=== PATIENT | female | born 1960 | race Caucasian/White ===

== ENCOUNTER 2019-01-06 08:49 | Emergency (ER) | payer MEDICAID ==
[~2019-01-06] VITALS: Ht 170.2 cm; Wt 113.4 kg
[~2019-01-06 08:49] MED LIST: DOXE10CA; LOR2I PO; QUET25TA37 PO; ZOLP5TAB5
[2019-01-06 08:55] VITALS: BP 143/83
== END 2019-01-06 12:25 | disposition home or self-care (01) ==
LOC: ER 08:52
DX: M25.551 Pain in right hip (principal); M54.6 Pain in thoracic spine; E78.5 Hyperlipidemia, unspecified; I10 Essential (primary) hypertension; Z86.39 Personal history of other endocrine, nutritional and metabolic disease; Z90.49 Acquired absence of other specified parts of digestive tract; Z88.2 Allergy status to sulfonamides; W18.09XA Striking against other object with subsequent fall, initial encounter; Y93.01 Activity, walking, marching and hiking; Y92.89 Other specified places as the place of occurrence of the external cause; Y99.8 Other external cause status
CPT/HCPCS: 73502

== ENCOUNTER 2021-01-07 14:25 | Emergency (ER) | payer MEDICAID ==
[~2021-01-07] VITALS: Ht 170.2 cm; Wt 107.5 kg
[2021-01-07 16:56] VITALS: BP 146/86
[2021-01-07] MEDS ORDERED: ONDANSETRON ODT 4 MG TAB PO ONE (17:30)
[2021-01-07] MEDS ORDERED: ACETAMINOPHEN/CODEINE#3 (300/30mg) TAB PO ONE (17:30)
== END 2021-01-07 17:44 | disposition home or self-care (01) ==
LOC: ER 14:25
DX: S52.501A Unspecified fracture of the lower end of right radius, initial encounter for closed fracture (principal); J44.9 Chronic obstructive pulmonary disease, unspecified; I10 Essential (primary) hypertension; E78.5 Hyperlipidemia, unspecified; Z90.49 Acquired absence of other specified parts of digestive tract; Z79.899 Other long term (current) drug therapy; Z88.2 Allergy status to sulfonamides; Z88.8 Allergy status to other drugs, medicaments and biological substances; W10.8XXA Fall (on) (from) other stairs and steps, initial encounter; Y93.89 Activity, other specified; Y92.89 Other specified places as the place of occurrence of the external cause; Y99.8 Other external cause status
CPT/HCPCS: 29125; 73110; 99283; Q0162